=== PATIENT | female | born 1965 | race Caucasian/White ===

== ENCOUNTER 2016-08-16 05:29 | Emergency (ER) ==
[2016-08-16 05:46] VITALS: BP 179/107
[2016-08-16] MEDS ORDERED: TORADOL IM ONE (05:59)
[2016-08-16] MEDS ORDERED: NORFLEX IM ONE (05:59)
--- NOTE | 2016-08-16 06:00 | PROVIDER DOCUMENTATION ---
HPI-Musculoskeletal Pain/Inj - GENERAL Chief Complaint: Extremity Pain Stated Complaint: HIGH BP/SWOLLEN FOOT Time Seen by Provider: 08/16/16 05:54 - HX OF PRESENT ILLNESS-MUSKULOSKELTAL Quality of Pain: reports: aching Onset/Duration: abrupt Timing: still present Any recent injury?: Yes Similar Symptoms Previously?: Yes Recently seen or treated by another doctor?: Yes - FALL INJURY Pain Radiation: reports: buttocks Reason for Fall: reports: fainted Symptoms prior to fall:: reports: none Loss of Consciousness: no loss of consciousness Injury Associated Symptoms: reports: headaches, muscle aches Review of Systems - Adult - REVIEW OF SYSTEMS - ADULT Constitutional: reports: no symptoms reported Eyes: reports: no symptoms reported Ears, Nose, Mouth & Throat: reports: no symptoms reported Cardiovascular: reports: no symptoms reported Respiratory: reports: no symptoms reported Gastrointestinal: reports: no symptoms reported Genitourinary: reports: no symptoms reported Musculoskeletal: reports: no symptoms reported Integumentary: reports: no symptoms reported Neurological: reports: no symptoms reported Psychiatric: reports: no symptoms reported Endocrine: reports: no symptoms reported Hematologic/Lymphatic: reports: no symptoms reported Allergic/Immunologic: reports: no symptoms reported All Other Systems: Reviewed and Negative Past History - Adult - PAST MEDICAL HISTORY-ADULT Review of Records: reports: Old Records Reviewed, Nursing Assessment Review, Medications Reviewed, Social history reviewed & non-contributory. Major Childhood Illnesses: reports: denies history Cardiovascular: reports: HTN, hyperlipidemia Respiratory: reports: denies history Gastrointestinal: reports: denies history Obstetrical/Gynecological: reports: uterine/ovarian cancer, other (HPV) Genitourinary: reports: denies history Musculoskeletal: reports: chronic pain, intervertebral disc disease Neurological: reports: denies history Psychiatric: reports: anxiety Endocrine/Immune: reports: denies history Other Conditions: reports: other (Lupus) - IMMUNIZATION STATUS Childhood Immunizations: See Nurse Assessment Flu Vaccine: See Nurse Assessment - FAMILY HISTORY Family History: reviewed, not pertinent Physical Exam-Injury Related - Physical Exam-Injury Related Initial Vital Signs Reviewed: Yes General Appearance: mild distress Eyes: PERRL/EOMI Neck: supple Respiratory: normal breath sounds, dull on percussion Cardiovascular: normal peripheral pulses, no murmur Departure - Departure Time of Disposition Order: 05:40 DIAGNOSIS: Chronic pain, Diabetic neuropathy Disposition: HOME 01 Certified Medical Emergency: Emergent Condition: Stable Additional Instructions: ED Follow Up Instructions: You have been treated by a care provider in the Emergency Department. These instructions are being provided to you so you can have an understanding of how to care for yourself upon discharge. Upon discharge from the Emergency Department, you are responsible for making arrangements for follow-up care by a physician of your choice. Take all prescribed medications as directed. Return to the Emergency Department immediately for any new or worsening symptoms. You may call the Physician Referral phone number at [phone] to obtain a list of Physicians who are taking new patients. Prescriptions: Sulfamethoxazole/Trimethoprim [Bactrim Ds Tablet] 2 each PO BID #40 tablet Referrals: None,PCP [Primary Care Provider] - Nicci Cano MD [STAFF PHYSICIAN] - Forms: Return to School/Parent Work Instructions: Chronic Pain, Diabetic Neuropathy, Sulfamethoxazole; Trimethoprim , SMX-TMP tablets
== END 2016-08-16 06:15 | disposition home or self-care (01) ==
LOC: P.ED 05:29
DX: E11.40 Type 2 diabetes mellitus with diabetic neuropathy, unspecified (principal); G89.29 Other chronic pain; R51 Headache; M79.1 Myalgia; I10 Essential (primary) hypertension; E78.5 Hyperlipidemia, unspecified; Z85.40 Personal history of malignant neoplasm of unspecified female genital organ; M32.9 Systemic lupus erythematosus, unspecified; F41.9 Anxiety disorder, unspecified; Z79.899 Other long term (current) drug therapy
CPT/HCPCS: 96372; J1885; J2360